=== PATIENT | female | born 1985 | race Two or more races ===

== ENCOUNTER 2016-09-02 21:07 | Emergency (ER) | payer SELFPAY ==
[2016-09-02 21:08] LABS: URINE SOURCE CLEAN CATCH
[2016-09-02 21:11] LABS: INFLUENZA A POS (NEG); INFLUENZA B NEG (NEG)
[2016-09-02 21:14] LABS: URINE APPEARANCE CLOUDY; URINE BILIRUBIN NEG (NEG); URINE BLOOD 1+ (NEG); URINE COLOR DK YELLOW; URINE GLUCOSE NEG (NEG); URINE KETONE NEG (NEG); URINE LEUKOCYTE ESTERASE NEG (NEG); URINE NITRATE NEG (NEG); URINE PROTEIN NEG (NEG); URINE SPECIFIC GRAVITY 1.048 (1.003-1.035); URINE UROBILINOGEN 0.2 MG/DL (NEG)
[2016-09-02 21:17] LABS: CULTURE INDICATED? NO; URINE BACTERIA AUWI NEG (NEGATIVE); URINE SQUAMOUS EPITHELIAL CELL OCC /[HPF]
== END 2016-09-02 21:20 | disposition home or self-care (01) ==
LOC: CFTX 21:07
PROVIDERS: Nurse Practitioner
DX: J10.1 Influenza due to other identified influenza virus with other respiratory manifestations (principal)
CPT/HCPCS: 81003; 84703; 87651; 87804; 99283